=== PATIENT | female | born 1935 | race Caucasian/White ===

== ENCOUNTER 2017-06-17 19:19 | Emergency (ER) | payer OTHER ==
[~2017-06-17] VITALS: Ht 157.5 cm; Wt 81.6 kg
[2017-06-18] MEDS ORDERED: ZANTAC300 MG PO (04:38)
== END 2017-06-18 04:35 | disposition home or self-care (01) ==
LOC: ER 19:19
DX: K52.9 Noninfective gastroenteritis and colitis, unspecified (principal)

== ENCOUNTER 2022-01-02 00:49 | Emergency (ER) | payer OTHER ==
[~2022-01-02] VITALS: Ht 154.9 cm; Wt 83.0 kg
[~2022-01-02 00:49] MED LIST: ZANTAC300 MG PO
[2022-01-02] MEDS ORDERED: PEPCID AC20 MG PO (03:18)
[2022-01-02] MEDS ORDERED: LEVSIN/SL0.125 MG SL (03:18)
== END 2022-01-02 03:25 | disposition home or self-care (01) ==
LOC: ER 00:49
DX: K29.70 Gastritis, unspecified, without bleeding (principal); I10 Essential (primary) hypertension

== ENCOUNTER 2024-08-12 09:23 | Emergency (ER) | payer OTHER ==
[~2024-08-12] VITALS: Ht 162.6 cm; Wt 72.6 kg
[~2024-08-12 09:23] MED LIST changes: +LEVSIN/SL0.125 MG SL; +PEPCID AC20 MG PO
[2024-08-12] MEDS ORDERED: B-121000 MC1 PO (09:58)
[2024-08-12] MEDS ORDERED: FAMOtidine 10 MG/ML (4ML VIAL) IV PUSH ONE (10:30)
[2024-08-12] MEDS ORDERED: ASPIRIN 325 MG TABLET PO ONE (10:30)
[2024-08-12] MEDS ORDERED: FAMOTIDINE/PF 20 MG/2 ML VIAL ONE (10:36)
[2024-08-12] MEDS ORDERED: ASPIRIN 325 MG TABLET.EC PO ONE (10:36)
[2024-08-12 12:01] LABS: BASO % 0.6 % (0.1-1.2); EOS # 0.17 (0.04-0.54); HEMATOCRIT 39.4 % (34.1-44.9); HEMOGLOBIN 12.7 g/dL (11.2-15.7); LYMPH % 25.2 % (19.3-53.1); MEAN CORPUSCULAR HEMOGLOBIN 28.7 pg (25.6-32.2); MONO # 0.59 (0.24-0.82); MONO % 7.1 % (4.7-12.5); NEUT # 5.36 (1.56-6.13); NEUT % 64.3 % (34.0-71.1); PLATELET COUNT 261 K/uL (163-369); RED BLOOD COUNT 4.43 M/uL (3.93-5.22); RED CELL DISTRIBUTION WIDTH 14.9 % (11.6-14.4)
[2024-08-12 12:13] LABS: INR 0.95; PROTHROMBIN TIME 10.4 SECONDS (9.0-11.5)
[2024-08-12 12:18] LABS: ALBUMIN 3.6 gm/dL (3.4-5.0); BILIRUBIN TOTAL 0.52 mg/dL (0.3-1.2); CALCIUM 9.3 mg/dL (8.5-10.1); CREATININE SERUM 0.76 mg/dL (0.55-1.02); GFR 71.99; GLOBULINA 3.9 G/DL (2.4-3.5); POTASSIUM 4.29 mEq/L (3.5-5.1); TOTAL PROTEIN 7.5 gm/dL (6.4-8.2)
[2024-08-12 14:34] LABS: URINE APPEARANCE Cloudy; URINE BILIRRUBIN Negative (NEGATIVE); URINE BLOOD Negative; URINE COLOR Yellow; URINE GLUCOSE Negative (NEGATIVE); URINE KETONE Negative (NEGATIVE); URINE LEUKOCYTE Negative; URINE NITRATE Negative; URINE PROTEIN Negative (NEGATIVE); URINE UROBILINOGEN 0.2 E.U./dl
[2024-08-12 14:36] LABS: URINE BACTERIA 599.6 uL (0.0-1933); URINE RBC 7.5 uL (0.0-20.8); URINE WBC 2.2 uL (0.0-23.2)
[2024-08-12 14:46] LABS: URINE CAST 0.29 uL (0.0-1.40)
== END 2024-08-12 16:46 | disposition home or self-care (01) ==
LOC: ER 09:23
PROVIDERS: General Practice
DX: R55 Syncope and collapse (principal); M54.50 Low back pain, unspecified; R07.89 Other chest pain
CPT/HCPCS: 36415; 70450; 71045; 93005; 93041; 96365; 99284; J3490

== ENCOUNTER 2025-01-30 19:23 | Emergency (ER) | payer OTHER ==
[~2025-01-30] VITALS: Ht 154.9 cm; Wt 63.5 kg
[~2025-01-30 19:23] MED LIST changes: +B-121000 MC1 PO
[2025-01-30] MEDS ORDERED: RYTARY ER 23.71 EACH (21:01)
[2025-01-30] MEDS ORDERED: ZIPSOR25 MG (21:01)
[2025-01-30] MEDS ORDERED: CARBIDOPA-LEVO1 EA12 PO (21:02)
[2025-01-30] MEDS ORDERED: ZOFRAN8 MG (21:03)
[2025-01-30] MEDS ORDERED: TYLENOL ARTHRI650 MG (21:03)
[2025-01-30] MEDS ORDERED: PROTONIX20 MG PO (21:03)
[2025-01-30] MEDS ORDERED: SUCRETS SORE THR2 MG (21:04)
[2025-01-30] MEDS ORDERED: ACETAMINOPHEN 500 MG GEL..CAP PO ONE (22:15)
[2025-01-30] MEDS ORDERED: FAMOtidine 10 MG/ML (4ML VIAL) IV PUSH ONE (22:15)
[2025-01-30] MEDS ORDERED: ONDANSETRON HCL 4 MG in 0.9 % SODIUM CHLORIDE 50 ML IV ONE (22:15)
[2025-01-30] MEDS ORDERED: KETOROLAC TROMETHAMINE 30 MG VIAL IU ONE (22:15)
[2025-01-31] MEDS ORDERED: KETOROLAC TROMETHAMINE 30 MG VIAL IV STA (00:19)
[2025-01-31 00:27] LABS: BASO % 0.5 % (0.1-1.2); EOS # 0.12 (0.04-0.54); EOS % 1.5 % (0.7-7.0); LYMPH # 1.70 (1.18-3.74); LYMPH % 21.0 % (19.3-53.1); MEAN PLATELET VOLUME 10.90 fl (9.4-12.4); MONO # 0.69 (0.24-0.82); MONO % 8.5 % (4.7-12.5); NEUT # 5.50 (1.56-6.13); NEUT % 68.0 % (34.0-71.1); RED CELL DISTRIBUTION WIDTH 14.2 % (11.6-14.4)
[2025-01-31 00:52] LABS: ALT/SGPT 20.0 U/L (12-78); AST/SGOT 20.0 U/L (15-37); BILIRUBIN TOTAL 0.72 mg/dL (0.3-1.2); BUN CREA RATIO 22.0 (7.0-25.0); CREATININE SERUM 0.97 mg/dL (0.55-1.02); GFR 54.32; GLOBULINA 3.6 G/DL (2.4-3.5); GLUCOSE FASTING 94.0 mg/dL (65-100); OSMOLALITY SERUM 286.0 MOSM/KG (275-295)
[2025-01-31] MEDS ORDERED: METRONIDAZOLE/SODIUM CHLORIDE 500 MG/100 ML PIGGYBACK IV ONE (01:30)
[2025-01-31] MEDS ORDERED: CEFTRIAXONE SODIUM 2,000 MG in 0.9 % SODIUM CHLORIDE 100 ML IV ONE (01:30)
[2025-01-31] MEDS ORDERED: MORPHINE SULFATE 4 MG/ML CARTRIDGE IV ONE (01:30)
[2025-01-31] MEDS ORDERED: PEPCID40 MG PO (07:15)
[2025-01-31] MEDS ORDERED: LEVSIN/SL0.125 MG SL (07:15)
[2025-01-31] MEDS ORDERED: APETIGEN-PLUS1 EACH PO (07:15)
== END 2025-01-31 07:51 ==
LOC: ER 19:24
PROVIDERS: General Practice
DX: R10.11 Right upper quadrant pain (principal)
CPT/HCPCS: 36415; 76700; 93005; 96365; 99284; J0696; J1885; J2270; J2405; J3490 ×2